=== PATIENT | male | born 1995 | race Hispanic/Latino ===

== ENCOUNTER 2020-06-13 00:17 | Emergency (ER) | payer OTHER ==
[2020-06-13] MEDS ORDERED: ONDANSETRON 4 MG/2 ML VIAL ONE (01:12)
[2020-06-13] MEDS ORDERED: MORPHINE 4 MG/ML SYR ONE (01:12)
[2020-06-13 01:14] LABS: Absolute Lymphocytes (CBC) 1.8 K/uL (0.7-4.9); Basophils % 0.4 % (0-1.3); Hematocrit 47.4 % (39.6-49.0); MPV 9.4 fL (7.6-11.3)
[2020-06-13 01:17] LABS: Protime INR 1.15
[2020-06-13 01:19] LABS: BUN Blood Urea Nitrogen 9 mg/dL (7-18); Bicarbonate 26 mmol/L (21-32); Glucose Level 90 mg/dL (74-106); Potassium 3.6 mmol/L (3.5-5.1); Sodium Level 140 mmol/L (136-145)
[2020-06-13] MEDS ORDERED: CLINDAMYCIN 600MG/D5W 600 MG/50 ML BAG IV ONE (01:48)
--- NOTE | 2020-06-13 02:46 | EDPHYS ---
Physician Documentation [facility] Name: Oleg Garcia Age: 24 yrs Sex: Male : 1995 Arrival Date: 06/13/2020 Time: 00:20 Bed 5 Private MD: ED Physician Ricardo Vo HPI: 06/13 00:54 This 24 yrs old Male presents to ER via Ambulatory with complaints of Jaw Injury. rn 00:54 The patient or guardian reports injury, pain, swelling. The complaints affect the right rn jaw. Context of injury: The problem was sustained at senior living, resulted from a fall. Onset: The symptoms/episode began/occurred today. Associated signs and symptoms: Loss of consciousness: This patient did not experience any loss of consciousness. Pertinent negatives: the patient has not experienced a loss of conciousness, double vision, headache, neck pain, seizure, shortness of breath, vomiting. Severity of symptoms: At their worst the symptoms were moderate, in the emergency department the symptoms are unchanged. The patient has not experienced similar symptoms in the past. The patient has not recently seen a physician. Reports fall running up stairs, hit right jaw on edge of stair, no LOC, doesn't take any blood thinners, remembers all events, denies other injury.. 00:56 Onset: The symptoms/episode began/occurred 2 hour(s) ago. rn Historical: - Allergies: 00:23 No Known Allergies; ea - Home Meds: 00:23 None [Active]; ea - PMHx: 00:23 None; ea - PSHx: 00:23 None; ea - Immunization history: Last tetanus immunization: - up to date. - Social history:: Smoking status: unknown Smoking status: unknown. - Family history:: not pertinent. - Hospitalizations: : No recent hospitalization is reported. ROS: 00:56 Constitutional: Negative for fever, chills, and weight loss, Eyes: Negative for injury, rn pain, redness, and discharge, ENT: + injury and pain to right jaw Neck: Negative for injury, pain, and swelling, Cardiovascular: Negative for chest pain, palpitations, and edema, Respiratory: Negative for shortness of breath, cough, wheezing, and pleuritic chest pain, Abdomen/GI: Negative for abdominal pain, nausea, vomiting, diarrhea, and constipation, Back: Negative for injury and pain, MS/Extremity: Negative for injury and deformity, Skin: Negative for injury, rash, and discoloration, Neuro: Negative for weakness, numbness, tingling, and seizure. Exam: 00:56 Constitutional: This is a well developed, well nourished patient who is awake, alert, rn and in no acute distress. Sitting upright and spitting small amounts of blood into emesis bag. Head/Face: Normocephalic, + mild swelling and tenderness along right jaw Eyes: Pupils equal round and reactive to light, extra-ocular motions intact. Lids and lashes normal. Conjunctiva and sclera are non-icteric and not injected. Cornea within normal limits. Periorbital areas with no swelling, redness, or edema. ENT: + small amount of bleeding noted along right lower teeth with break in alveolar ridge between teeth 28/29 and mild subluxation of tooth 29. Neck: NO midline tenderness Cardiovascular: Bradycardic, regular. No pulse deficits. Respiratory: No increased work of breathing, no retractions or nasal flaring. Abdomen/GI: Soft, non-tender MS/ Extremity: Pulses equal, no cyanosis. Neurovascular intact. Full, normal range of motion. Equal circumference. Neuro: Awake and alert, GCS 15, oriented to person, place, time, and situation. Cranial nerves II-XII grossly intact. Motor strength 5/5 in all extremities. Sensory grossly intact. Vital Signs: 00:21 BP 130 / 87; Pulse 53; Resp 16; Temp 98.4; Pulse Ox 99% ; ea 01:27 BP 131 / 80; Pulse 60; Resp 16; Pulse Ox 100% ; ea 02:44 BP 141 / 89; Pulse 60; Resp 16; Temp 98.0; Pulse Ox 98% ; ea 03:12 BP 148 / 78; Pulse 62; Resp 18; Temp 98.2; Pulse Ox 98% ; ea [facility] Coma Score: 00:21 Eye Response: spontaneous(4). Verbal Response: oriented(5). Motor Response: obeys rv commands(6). Total: 15. 00:54 Eye Response: spontaneous(4). Verbal Response: oriented(5). Motor Response: obeys rn commands(6). Total: 15. 01:27 Eye Response: spontaneous(4). Verbal Response: oriented(5). Motor Response: obeys ea commands(6). Total: 15. 01:53 Eye Response: spontaneous(4). Verbal Response: oriented(5). Motor Response: obeys rn commands(6). Total: 15. Trauma Score (Adult): 00:21 Eye Response: spontaneous(1); Verbal Response: oriented(1); Motor Response: obeys rv commands(2); Systolic BP: > 89 mm Hg(4); Respiratory Rate: 10 to 29 per min(4); [facility] Score: 15; Trauma Score: 12 MDM: 00:23 Patient medically screened. rn 01:53 Differential diagnosis: Contusion of Concussion mandible fracture. Data reviewed: vital rn signs, nurses notes, lab test result(s), radiologic studies, CT scan, and as a result, I will admit patient. Counseling: I had a detailed discussion with the patient and/or guardian regarding: the historical points, exam findings, and any diagnostic results supporting the discharge/admit diagnosis, radiology results, the need for further work-up and treatment in the hospital, the need to transfer to another facility, for higher level of care, [facility] not [facility] have the required specialist. Response to treatment: the patient's symptoms have mildly improved after treatment, and as a result, I will admit patient. ED course: Pt with fractures of right parasymphyseal mandible that extends through alveolar ridge, and displaced left body of mandible. Will have to transfer given to facial trauma coverage at this hospital, and patient is inmate. Attempting to transfer to [facility] for these reasons. . 02:47 ED course: Spoke with [facility] after initiating transfer, physician at [facility] covering facial digital media intern states no need for emergent transfer, states can f/u JONATHON in clinic. Managed care taking care of appointment. Abx given. Pain improved with morphine.. 06/13 00:39 Order name: CBC with Diff rn 06/13 00:39 Order name: Basic Metabolic Panel rn 06/13 00:39 Order name: Protime (+inr) rn 06/13 00:39 Order name: Ptt, Activated rn 06/13 00:41 Order name: CBC with Automated Diff EDMS 06/13 00:41 Order name: Basic Metabolic Panel EDMS 06/13 00:39 Order name: CT Head C Spine rn 06/13 00:39 Order name: CT Facial Bones W/O Con rn 06/13 00:41 Order name: Protime (+INR) EDMS 06/13 00:41 Order name: PTT, Activated Partial Thromb EDMS 06/13 00:39 Order name: IV Start; Complete Time: 01:08 rn Administered Medications: 01:06 Drug: morphine 4 mg Route: IVP; Site: right upper arm; ea 02:55 Follow up: Response: No adverse reaction ea 01:06 Drug: Zofran (Ondansetron) 4 mg Route: IVP; Site: right upper arm; ea 02:55 Follow up: Response: No adverse reaction ea 01:33 Drug: Clindamycin 600 mg Route: IVPB; Infused Over: 30 mins; Site: right upper arm; ea 02:05 Follow up: Response: No adverse reaction; IV Status: Completed infusion ea 03:04 Drug: morphine 4 mg Route: IVP; Site: right upper arm; ea 03:13 Follow up: Response: Medication administered at discharge. ea Disposition: 06/13/20 02:50 Discharged to Home. Impression: Fracture of alveolus of mandible, Fracture of condylar process of mandible, Fracture of ramus of mandible, Fracture of nasal bones. - Condition is Stable. - Discharge Instructions: Mandibular Fracture, Nasal Fracture. - Prescriptions for Augmentin 875- 125 mg Oral Tablet - take 1 tablet by ORAL route every 12 hours for 10 days; 20 tablet. Tylenol- Codeine #3 300-30 mg Oral Tablet - take 2 tablet by ORAL route every 4-6 hours As needed; 20 tablet. - Medication Reconciliation Form, Thank You Letter, Antibiotic Education, Prescription Opioid Use form. - Follow up: Private Physician; When: When scheduled by managed care; Reason: Recheck today's complaints, Continuance of care. - Problem is new. - Symptoms have improved. Signatures: Dispatcher [employer] EDMS Ricardo Vo MD MD rn Antunez, Elena, RN RN ea Vicente, Ronaldo, RN RN rv Corrections: (The following items were deleted from the chart) 01:54 00:56 Constitutional: This is a well developed, well nourished patient who is awake, rn alert, and in no acute distress. Sitting upright and spitting small amounts of blood into emesis bag. Head/Face: Normocephalic, + mild swelling and tenderness along right jaw Eyes: Pupils equal round and reactive to light, extra-ocular motions intact. Lids and lashes normal. Conjunctiva and sclera are non-icteric and not injected. Cornea within normal limits. Periorbital areas with no swelling, redness, or edema. ENT: + small amount of bleeding noted along right loewr teeth, difficult to appreciate if alveolar ridge fracture evident. Neck: NO midline tenderness Cardiovascular: Bradycardic, regular. No pulse deficits. Respiratory: No increased work of breathing, no retractions or nasal flaring. Abdomen/GI: Soft, non-tender MS/ Extremity: Pulses equal, no cyanosis. Neurovascular intact. Full, normal range of motion. Equal circumference. Neuro: Awake and alert, GCS 15, oriented to person, place, time, and situation. Cranial nerves II-XII grossly intact. Motor strength 5/5 in all extremities. Sensory grossly intact. rn 02:47 02:45 06/13/2020 02:45 Transfer ordered to [facility]. Diagnosis is Fracture of rn alveolus of mandible; Fracture of ramus of mandible; Fracture of condylar process of mandible; Fracture of nasal bones. Reason for transfer: Higher level of care. Accepting physician is . Condition is Stable. Problem is new. Symptoms have improved. rn 03:13 02:50 06/13/2020 02:50 Discharged to Home. Impression: Fracture of alveolus of ea mandible; Fracture of condylar process of mandible; Fracture of ramus of mandible; Fracture of nasal bones. Condition is Stable. Forms are Medication Reconciliation Form, Thank You Letter, Antibiotic Education, Prescription Opioid Use. Follow up: Private Physician; When: When scheduled by managed care; Reason: Recheck today's complaints, Continuance of care. Problem is new. Symptoms have improved. rn
--- NOTE | 2020-06-13 02:46 | ER ---
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 Pt complaining of right jaw pain. Coronavirus screen: At this time, the client does not indicate any symptoms associated with coronavirus-19. Ebola Screen: No symptoms or risks identified at this time. Initial Sepsis Screen: Does the patient meet any 2 criteria? No. Patient's initial sepsis screen is negative. Does the patient have a suspected source of infection? No. Patient's initial sepsis screen is negative. Risk Assessment: Do you want to hurt yourself or someone else? Patient reports no desire to harm self or others. Onset of symptoms was June 13, 2020. 00:21 Method Of Arrival: Ambulatory ea 00:21 Acuity: ROHAN 3 ea 00:31 Mechanism of Injury: Fall down steps an unknown distance. Trauma event details: Injury ea occurred in the [facility], Injury occurred: nursing home Injury occurred: June 12, 2020 Injury occurred at: 22:00. 00:32 Care prior to arrival: None. ea Triage Assessment: 00:23 General: Appears comfortable, Behavior is calm, cooperative. Pain: Complains of pain in rv lower jaw. Trauma Activation: Not Applicable Physician: ED Physician; Name: ; Notified At: ; Arrived At: Physician: General Surgeon; Name: ; Notified At: ; Arrived At: Physician: Radiology; Name: ; Notified At: ; Arrived At: Physician: Respiratory; Name: ; Notified At: ; Arrived At: Physician: Lab; Name: ; Notified At: ; Arrived At: Historical: - Allergies: 00:23 No Known Allergies; ea - Home Meds: 00:23 None [Active]; ea - PMHx: 00:23 None; ea - PSHx: 00:23 None; ea - Immunization history: Last tetanus immunization: - up to date. - Social history:: Smoking status: unknown Smoking status: unknown. - Family history:: not pertinent. - Hospitalizations: : No recent hospitalization is reported. Screenin:21 Abuse screen: Denies threats or abuse. Denies injuries from another. Tuberculosis rv screening: No symptoms or risk factors identified. 00:22 Nutritional screening: No deficits noted. Fall Risk None identified. rv Primary Survey: 00:21 NO uncontrolled hemorrhage observed. A: The patient is alert. Airway: patent. rv Breathing/Chest: Respiratory pattern: regular. Circulation: Skin color: pink. Disability Alert. Exposure/Environment: There is no evidence of uncontrolled external bleeding. No obvious injuries are noted at this time. A warming method has been applied: A warm blanket has been provided to the patient. 01:26 Reassessment Airway Airway Patent Breathing/Chest Respiratory pattern Regular ea Respiratory effort Spontaneous Unlabored Disability Alert. Secondary Survey: 00:21 HEENT: No deficits noted. Head No injury/deformity Face No injury/deformity Eyes: No rv injury or deformity noted. Ears: clear bilaterally. Nose: clear to bilateral nares. Throat: No injury or deformity noted. Gastrointestinal: No deficits noted. : No deficits noted. Musculoskeletal: No signs and/or symptoms reported regarding the musculoskeletal system. Assessment: 00:23 General: Appears uncomfortable, Behavior is appropriate for age. Pain: Complains of ea pain in right side of head. Neuro: Level of Consciousness is awake, alert, obeys commands, Oriented to person, place, time. Cardiovascular: Patient's skin is warm and dry. Respiratory: Airway is patent Respiratory effort is even, unlabored, Respiratory pattern is regular, symmetrical. EENT: pt spitting out bloody sputum. Derm: Skin is pink, warm \\T\\ dry. 01:18 Reassessment: Patient and/or family updated on plan of care and expected duration. Pain ea level reassessed. Patient is alert, oriented x 3, equal unlabored respirations, skin warm/dry/pink. Pt taken to CT. 02:44 Reassessment: Patient and/or family updated on plan of care and expected duration. Pain ea level reassessed. Patient is alert, oriented x 3, equal unlabored respirations, skin warm/dry/pink. Vital Signs: 00:21 BP 130 / 87; Pulse 53; Resp 16; Temp 98.4; Pulse Ox 99% ; ea 01:27 BP 131 / 80; Pulse 60; Resp 16; Pulse Ox 100% ; ea 02:44 BP 141 / 89; Pulse 60; Resp 16; Temp 98.0; Pulse Ox 98% ; ea 03:12 BP 148 / 78; Pulse 62; Resp 18; Temp 98.2; Pulse Ox 98% ; ea [facility] Coma Score: 00:21 Eye Response: spontaneous(4). Verbal Response: oriented(5). Motor Response: obeys rv commands(6). Total: 15. 00:54 Eye Response: spontaneous(4). Verbal Response: oriented(5). Motor Response: obeys rn commands(6). Total: 15. 01:27 Eye Response: spontaneous(4). Verbal Response: oriented(5). Motor Response: obeys ea commands(6). Total: 15. 01:53 Eye Response: spontaneous(4). Verbal Response: oriented(5). Motor Response: obeys rn commands(6). Total: 15. Trauma Score (Adult): 00:21 Eye Response: spontaneous(1); Verbal Response: oriented(1); Motor Response: obeys rv commands(2); Systolic BP: > 89 mm Hg(4); Respiratory Rate: 10 to 29 per min(4); [place] Score: 15; Trauma Score: 12 ED Course: 00:20 Patient arrived in ED. rv 00:21 Patient has correct armband on for positive identification. rv 00:21 Patient maintains SpO2 saturation greater than 95% on room air. rv 00:23 Triage completed. ea 00:23 Ricardo Vo MD is Attending Physician. rn 00:23 Arm band placed on right wrist. Patient placed in an exam room, on a stretcher, on ea pulse oximetry. 00:30 Luz Brewer, ZOIE is Primary Nurse. ea 00:31 Thermoregulation: warm blanket given to patient. ea 00:45 Missed attempt(s): 20 gauge in right forearm. Bleeding controlled, band aid applied, ea catheter tip intact. 01:06 Inserted saline lock: 18 gauge in right upper arm, using aseptic technique. ,using ea aseptic technique. per Lele LINO. 01:37 CT Head C Spine In Process Unspecified. EDMS 01:37 CT Facial Bones W/O Con In Process Unspecified. EDMS 02:00 initiated a transfer with Lana from [facility]. She stated " we will mw2 check bed placement and I will call you back.". 03:05 No provider procedures requiring assistance completed. IV discontinued, intact, ea bleeding controlled, No redness/swelling at site. Pressure dressing applied. Administered Medications: 01:06 Drug: morphine 4 mg Route: IVP; Site: right upper arm; ea 02:55 Follow up: Response: No adverse reaction ea 01:06 Drug: Zofran (Ondansetron) 4 mg Route: IVP; Site: right upper arm; ea 02:55 Follow up: Response: No adverse reaction ea 01:33 Drug: Clindamycin 600 mg Route: IVPB; Infused Over: 30 mins; Site: right upper arm; ea 02:05 Follow up: Response: No adverse reaction; IV Status: Completed infusion ea 03:04 Drug: morphine 4 mg Route: IVP; Site: right upper arm; ea 03:13 Follow up: Response: Medication administered at discharge. ea Intake: 03:12 PO: 0ml; Total: 0ml. ea Outcome: 02:45 ER care complete, transfer ordered by . rn 02:50 Discharge ordered by MD. rn 03:05 Discharged to [facility] ea 03:05 Condition: stable 03:05 Patient's length of stay was not longer than 2 hours. 03:05 Discharge instructions given to patient, Instructed on discharge instructions, follow ea up and referral plans. medication usage, Demonstrated understanding of instructions, follow-up care, medications, Prescriptions given X 2. 03:13 Patient left the ED. ea Signatures: Dispatcher [employer] [facility] Ricardo Vo MD MD rn Antunez, Elena RN RN J Carlos Costa mw2 Gabriele Osorio RN RN rv
[2020-06-13 03:36] VITALS: O2SAT 98
[2020-06-13 03:37] VITALS: BP 148/78; TEMP 98.2
--- NOTE | 2020-06-13 13:53 | RAD REPORT ---
EXAM DESCRIPTION: CT - Facial Bones W/ Mpr - 06/13/2020 6:38 am CLINICAL HISTORY: FACIAL PAIN COMPARISON: None. TECHNIQUE: CT MAXILLOFACIAL WITHOUT IV CONTRAST on 06/13/2020 12:39 AM CDT This exam was performed according to our departmental dose-optimization program, which includes autom ated exposure control, adjustment of the mA and/or kV according to patient size and/or use of iterati ve reconstruction technique. FINDINGS: There is a displaced fracture of the left mandibular condyle. There is a mildly displaced fracture of the anterolateral right side of the mandible. There are bilateral mildly comminuted fract ures of the nasal bones. There is an old appearing fracture of the medial right orbital wall. The par anasal sinuses are clear. Orbits and globes are unremarkable. Mastoid air cells are clear. Temporoman dibular joints are intact. There are no significant soft tissue abnormalities. IMPRESSION: Multiple bilateral fractures as described. Electronically signed by: Ismael Rosen MD 06/13/2020 2:01 AM CDT Due to temporary technical issues with the PACS/Fluency reporting system, reports are being signed by the in house radiologists without review as a courtesy to insure prompt reporting. The interpreting radiologist is fully responsible for the content of the report.
--- NOTE | 2020-06-13 14:20 | RAD REPORT ---
EXAM DESCRIPTION: CT - CTHCSPWOC - 06/13/2020 6:38 am CLINICAL HISTORY: 24 years, Male, fall, head injury, facial trauma COMPARISON: None. FINDINGS: Multiple transaxial tomograms of the brain were obtained from the base of the skull to the vertex without contrast. 2-D multiplanar reformats and the coronal and sagittal plane were performed and reviewed. An individualized dose optimization technique, Automated Exposure Control, was utilized for the perfo rmed procedure. Head: The brain parenchyma as well as the parsons and white matter differentiation demonstrate to be unr emarkable. There is no midline shift and/or mass effect. There is no evidence for acute hemorrhage an d/or infarction. Lateral ventricles and cisterns displace normal appearance. No intra or extra ax ial fluid collections were seen. The calvarium is intact with no evidence for fracture. The visualize d portions of the paranasal sinuses and orbits demonstrate to be clear. Cervical spine: The alignment, vertebral body heights, and disc spaces are normal. There is no evid ence of fracture or subluxation. There are no significant degenerative changes. The spinal canal demo nstrate no evidence for significant stenosis. Neural foramina demonstrate to be unremarkable. The unc overtebral joints demonstrate to be normal. There is no prevertebral soft tissue swelling. Sagittal coronal reformatted images demonstrate no subluxation or bony abnormalities. Incidentally is noted presence of a right anterior mandibular fracture and left mandible condyle neck . IMPRESSION: NO ACUTE INTRACRANIAL HEMORRHAGE. UNREMARKABLE CT SCAN OF THE HEAD WITHOUT CONTRAST. CT CERVICAL SPINE NEGATIVE FOR FRACTURE OR SUBLUXATION. INCIDENTALLY NOTED IS A RIGHT ANTERIOR MANDIBULAR FRACTURE AND LEFT NECK MANDIBULAR CONDYLE. Electronically signed by: Dom Flores MD 06/13/2020 2:02 AM CDT Due to temporary technical issues with the PACS/Fluency reporting system, reports are being signed by the in house radiologists without review as a courtesy to insure prompt reporting. The interpreting radiologist is fully responsible for the content of the report.
== END 2020-06-13 03:13 | disposition home or self-care (01) ==
LOC: ER 00:17
DX: S02.670A Fracture of alveolus of mandible, unspecified side, initial encounter for closed fracture (principal); S02.2XXA Fracture of nasal bones, initial encounter for closed fracture; S02.612A Fracture of condylar process of left mandible, initial encounter for closed fracture; S02.640A Fracture of ramus of mandible, unspecified side, initial encounter for closed fracture; W10.9XXA Fall (on) (from) unspecified stairs and steps, initial encounter; Y92.149 Unspecified place in prison as the place of occurrence of the external cause
CPT/HCPCS: 85025; 80048; 36415; 85610; 85730; 70450; 72125; 70486; 76377; J2405; 96365; 96375; 99284

== ENCOUNTER 2023-06-06 09:53 | Emergency (ER) | payer OTHER ==
[2023-06-06 10:26] LABS: Absolute Eosinophils 0.1 K/uL (0-0.5); Absolute Lymphocytes (CBC) 1.2 K/uL (0.7-4.9); Absolute Monocytes 0.5 K/uL (0.1-1.3); Absolute Neutrophil 4.7 K/uL (1.8-8.0); Basophils % 0.7 % (0-1.3); Eosinophils % 1.3 % (0-4.4); Hematocrit 40.4 % (39.6-49.0); Hemoglobin 13.9 g/dL (13.6-17.9); Lymphocytes % 18.1 % (15.3-44.8); MCH 29.7 pg (27.0-35.0); MCHC 34.5 g/dL (32.0-36.0); MCV 86.3 fL (80-100); MPV 8.3 fL (7.6-11.3); Monocytes % 7.4 % (3.3-12.3); Neutrophils % 72.5 % (41.7-73.7); Nucleated Red Blood Cells % 0.1 % (0-0); Platelets 224 thou/uL (152-406); RBC Red Blood Cell Count 4.68 M/uL (4.33-5.43); Red Cell Distribution Width 13.9 % (12.1-15.2)
[2023-06-06 10:46] LABS: ALT/SGPT 104 U/L (16-61); AST/SGOT 211 U/L (15-37); Albumin 4.2 g/dL (3.4-5.0); Albumin/Globulin Ratio 1.4 (1.1-1.8); Alkaline Phosphatase 75 U/L (45-117); Anion Gap 7.2 mEq/L (5.0-15.0); BUN Blood Urea Nitrogen 14 mg/dL (7-18); Bicarbonate 27 mEq/L (21-32); Bilirubin Direct 0.2 mg/dL (0-0.2); Bilirubin Indirect, Calculated 0.4 mg/dL (0.2-0.8); Bilirubin Total 0.6 mg/dL (0.2-1.0); Glomerular Filtration Rate 128 ml/min (=/>90); Glucose Level 117 mg/dL (74-106); Potassium 4.2 mEq/L (3.5-5.1); Protein, Total 7.2 g/dL (6.4-8.2); Sodium Level 140 mEq/L (136-145)
--- NOTE | 2023-06-06 11:03 | RAD REPORT ---
EXAM DESCRIPTION: CT - Neck Angio - 06/06/2023 10:23 am CLINICAL HISTORY: Attempted suicide by hanging COMPARISON: C Spine Wo Con dated 06/06/2023; Head C Spine Mpr Wo Con dated 06/13/2020 TECHNIQUE: Axial CT angiography images of the neck was performed with multiplanar and maximum intens ity projection reconstructions. Images performed following intravenous administration of 100mL Isovue 370. All CT scans are performed using dose optimization technique as appropriate and may include automated exposure control or mA/KV adjustment according to patient size. Quantification of carotid stenosis, if any, is performed according to NASCET criteria. FINDINGS: A left aortic arch is identified with normal three vessel configuration of the great vesse ls. No significant flow abnormality is seen of the common carotid bilaterally. No significant stenosis is identified involving the cervical segments of both internal carotid arteri es. Tortuosity of the distal right ICA. Normal flow is seen within both vertebral arteries. No evidence of dissection, aneurysm, or other vascular abnormality. IMPRESSION: No evidence of dissection or other vascular abnormality. No significant flow abnormality of the neck vessels is identified. CAROTID STENOSIS REFERENCE USING NASCET CRITERIA: % ICA stenosis = (1 - narrowest ICA diameter/diameter of distal cervical ICA) x 100. Mild - <50% stenosis. Moderate - 50-69% stenosis. Severe - 70-94% stenosis. Near occlusion - 95-99% stenosis. Occluded - 100% stenosis.
--- NOTE | 2023-06-06 11:26 | RAD REPORT ---
EXAM DESCRIPTION: CT - C Spine Wo Con - 06/06/2023 10:25 am CLINICAL HISTORY: Attempted suicide by hanging COMPARISON: None. TECHNIQUE: Axial thin cut noncontrast CT images of the cervical spine were obtained with sagittal an d coronal reconstruction images generated and reviewed. All CT scans are performed using dose optimization technique as appropriate and may include automated exposure control or mA/KV adjustment according to patient size. FINDINGS: Cervical body height and alignment are normal. Atlanto odontoid relationship is normal. No disk space narrowing. No fracture or acute bony abnormality. No paraspinal mass or hematoma. Dental and periodontal disease with a periapical abscess along the root of the right mandibular later al incisor. Partially included small osteoma along the maxillary alveolus. IMPRESSION: No acute traumatic cervical spine fracture or subluxation.
--- NOTE | 2023-06-06 11:43 | ER ---
Nurse's Notes [facility] Name: Oleg Garcia Age: 27 yrs Sex: Male : 1995 Arrival Date: 06/06/2023 Time: 09:53 Bed 5 Private MD: Diagnosis: Attempted by suicide, neck abrasion Presentation: 06/05 09:57 Chief complaint: EMS states: Pt tried hanging himself with a sheet, incident was rs5 observed by [facility] staff who cut him down. Coronavirus screen: At this time, the client does not indicate any symptoms associated with coronavirus-19. Ebola Screen: No symptoms or risks identified at this time. Initial Sepsis Screen: Does the patient meet any 2 criteria? No. Patient's initial sepsis screen is negative. Does the patient have a suspected source of infection? No. Patient's initial sepsis screen is negative. Risk Assessment: Do you want to hurt yourself or someone else? Patient reports desire/thoughts of hurting themselves or someone else. Provider notified. Onset of symptoms was June 06, 2023. Care prior to arrival: IV initiated. 20 GA, in the right antecubital area. 09:57 Acuity: ROHAN 3 rs5 09:57 Method Of Arrival: EMS: [facility] iw 13:35 Care prior to arrival: Medication(s) given: fentanyl 50 mcg IVP X 2 iw Historical: - Allergies: 10:00 No Known Allergies; rs5 - PMHx: 10:00 None; rs5 - PSHx: 10:00 Jaw and nose surgery; rs5 - Immunization history:: Adult Immunizations up to date. - Infectious Disease History:: Denies. - Social history:: Smoking status: Patient denies any tobacco usage or history of. Screenin:58 [place] ED Fall Risk Assessment (Adult) History of falling in the last 3 months, rs5 including since admission No falls in past 3 months (0 pts) Confusion or Disorientation No (0 pts) Intoxicated or Sedated No (0 pts) Impaired Gait No (0 pts) Mobility Assist Device Used No (0 pt) Altered Elimination No (0 pt) Score/Fall Risk Level 0 - 2 = Low Risk Oriented to surroundings, Maintained a safe environment. Abuse screen: Denies threats or abuse. Nutritional screening: No deficits noted. Tuberculosis screening: No symptoms or risk factors identified. Assessment: 09:56 General: Appears in no apparent distress. comfortable, Behavior is calm, cooperative. rs5 09:56 Pain: Denies pain. Neuro: Level of Consciousness is awake, alert, obeys commands, rs5 Oriented to person, place, time, situation. Cardiovascular: Patient's skin is warm and dry. Rhythm is regular. Respiratory: Airway is patent Respiratory effort is even, unlabored, Respiratory pattern is regular, symmetrical, Breath sounds are clear bilaterally. GI: Abdomen is round non-distended, Abd is soft and non tender X 4 quads. : No signs and/or symptoms were reported regarding the genitourinary system. EENT: No signs and/or symptoms were reported regarding the EENT system. Derm: Skin is intact, Skin is dry, Skin is normal, Skin temperature is warm. Musculoskeletal: Range of motion: intact in all extremities. 11:09 Reassessment: Patient and/or family updated on plan of care and expected duration. Pain rs5 level reassessed. Patient is alert, oriented x 3, equal unlabored respirations, skin warm/dry/pink. 12:25 Reassessment: No changes from previously documented assessment. rs5 13:00 Reassessment: Patient and/or family updated on plan of care and expected duration. Pain rs5 level reassessed. Patient is alert, oriented x 3, equal unlabored respirations, skin warm/dry/pink. Vital Signs: 09:57 BP 125 / 81; Pulse 70; Resp 18; Temp 97.8(O); Pulse Ox 99% ; rs5 11:31 BP 120 / 78; Pulse 72; Resp 18; Pulse Ox 99% on R/A; rs5 13:40 BP 118 / 78; Pulse 71; Resp 16; Temp 98.1; Pulse Ox 100% on R/A; iw ED Course: 09:55 Patient arrived in ED. eb 09:55 Susana Jerry MD is Attending Physician. sp3 09:57 Raphael Mosley, ZOIE is Primary Nurse. rs5 09:58 Patient has correct armband on for positive identification. Placed in gown. Bed in low rs5 position. Call light in reach. Side rails up X2. 10:00 Triage completed. rs5 10:19 Initial lab(s) drawn, by me, sent to lab. Maintain EMS IV. Dressing intact. Good blood jg11 return noted. Site clean \T\ dry. 10:24 CT Neck Angio In Process Unspecified. EDMS 10:24 CT C Spine In Process Unspecified. EDMS 10:39 Arm band placed on. iw 11:32 No provider procedures requiring assistance completed. rs5 11:41 initiated a transfer with Dylan Borrego Rn from [facility]/ he says he will call the psych doctor at [facility] and call us right back. 13:40 IV discontinued, intact, bleeding controlled, No redness/swelling at site. Pressure iw dressing applied. Administered Medications: No medications were administered Medication: 11:32 VIS not applicable for this client. rs5 Outcome: 11:42 ER care complete, transfer ordered by . sp3 13:16 Discharge ordered by . sp3 13:48 Discharged to Law Enforcement iw 13:48 Condition: stable 13:48 Instructed on 13:49 Patient left the ED. iw Signatures: Dispatcher [employer] Vicki Gallegos, RN RN Mariajose Braxton Setul, MD MD sp3 Raphael Mosley RN RN rs5 Fredy Walker jg11 Corrections: (The following items were deleted from the chart) 10:00 10:00 PSHx: None; rs5 rs5 10:05 09:57 Method Of Arrival: EMS: [facility] rs5 iw 10:40 09:57 Risk Assessment: Do you want to hurt yourself or someone else? Patient reports no iw desire to harm self or others. rs5
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
[2023-06-06 14:26] VITALS: BP 120/78; TEMP 97.8; O2SAT 99
== END 2023-06-06 13:49 | disposition home or self-care (01) ==
LOC: ER 09:53
DX: S10.81XA Abrasion of other specified part of neck, initial encounter (principal); X83.8XXA Intentional self-harm by other specified means, initial encounter
CPT/HCPCS: 85025; 80048; 36415; 80076; 72125; 70498; 99284; 80143; 80179; 82077; Q9967

== ENCOUNTER 2024-11-04 09:58 | Emergency (ER) | payer OTHER ==
[2024-11-04 10:35] LABS: Absolute Lymphocytes (CBC) 1.6 K/uL (0.7-4.9); Hematocrit 42.1 % (39.6-49.0); Hemoglobin 14.3 g/dL (13.6-17.9); MCH 29.3 pg (27.0-35.0); MCHC 34.1 g/dL (32.0-36.0); MCV 86.1 fL (80-100); MPV 8.6 fL (7.6-11.3); Nucleated RBC Absolute Count 0.0 (0-0); Nucleated Red Blood Cells % 0.2 % (0-0); RBC Red Blood Cell Count 4.89 M/uL (4.33-5.43); White Blood Count 5.90 thou/uL (4.3-10.9)
[2024-11-04] MEDS ORDERED: NA CHLORIDE 0.9% 1,000 ML ONE ×2 (10:37→12:23)
[2024-11-04 10:47] LABS: PT Prothrombin Time 13.0 SECONDS (10-13.0); PTT, Activated Partial Thromb 31.1 SECONDS (27.2-37.4); Protime INR 1.16
[2024-11-04 11:12] LABS: METHAMPHETAM NEGATIVE (NEGATIVE); THC Cannibis NEGATIVE (NEGATIVE)
[2024-11-04 11:17] LABS: Anion Gap 8.6 mEq/L (5.0-15.0); Potassium 3.6 mEq/L (3.5-5.1)
[2024-11-04 11:18] LABS: ALT/SGPT 15 U/L (16-61); AST/SGOT 8 U/L (15-37); Albumin 4.2 g/dL (3.4-5.0); Albumin/Globulin Ratio 1.6 (1.1-1.8); Alkaline Phosphatase 55 U/L (45-117); BUN Blood Urea Nitrogen 16 mg/dL (7-18); Bilirubin Indirect, Calculated 1.2 mg/dL (0.2-0.8); Globulin 2.7 g/dL (2.3-3.5); Glucose Level 111 mg/dL (74-106)
[2024-11-04 11:21] LABS: Troponin High Sensitivity 3.0 (<58.9)
--- NOTE | 2024-11-04 13:55 | EDPHYS ---
Physician Documentation [facility] Name: Oleg Garcia Age: 28 yrs Sex: Male : 1995 Arrival Date: 11/04/2024 Time: 09:58 Bed 4 Private MD: ED Physician Liset Strauss HPI: 11/04 14:05 This 28 yrs old Male presents to ER via EMS with complaints of Altered Mental gb1 Status. 14:05 28-year-old male was brought in by security senior living officers due to being found gb1 unresponsive in his cell. The present has been finding inmates with similar symptoms over the last couple weeks. Patient denies ingesting any substance and denies alcohol intoxication.. Historical: - Allergies: 10:03 No Known Allergies; ll1 - Home Meds: 10:03 None [Active]; ll1 - PMHx: 10:03 None; ll1 - PSHx: 10:03 Jaw and nose surgery; ll1 - Immunization history:: Adult Immunizations up to date. - Infectious Disease History:: Denies. - Social history:: Smoking status: Patient reports the use of cigarette tobacco products, denies chronic smoking, but will smoke occasionally. Exam: 14:05 Constitutional: This is a well developed, well nourished patient who is awake, alert, gb1 and in no acute distress. Head/Face: Normocephalic, atraumatic. Eyes: Pupils equal round and reactive to light, extra-ocular motions intact. Lids and lashes normal. Conjunctiva and sclera are non-icteric and not injected. Cornea within normal limits. Periorbital areas with no swelling, redness, or edema. ENT: Nares patent. No nasal discharge, no septal abnormalities noted. Tympanic membranes are normal and external auditory canals are clear. Oropharynx with no redness, swelling, or masses, exudates, or evidence of obstruction, uvula midline. Mucous membranes moist. Neck: Trachea midline, no thyromegaly or masses palpated, and no cervical lymphadenopathy. Supple, full range of motion without nuchal rigidity, or vertebral point tenderness. No Meningismus. Chest/axilla: Normal chest wall appearance and motion. Nontender with no deformity. No lesions are appreciated. Cardiovascular: Regular rate and rhythm with a normal S1 and S2. No gallops, murmurs, or rubs. Normal PMI, no JVD. No pulse deficits. Respiratory: Lungs have equal breath sounds bilaterally, clear to auscultation and percussion. No rales, rhonchi or wheezes noted. No increased work of breathing, no retractions or nasal flaring. Abdomen/GI: Soft, non-tender, with normal bowel sounds. No distension or tympany. No guarding or rebound. No evidence of tenderness throughout. Skin: Warm, dry with normal turgor. Pale MS/ Extremity: Pulses equal, no cyanosis. Neurovascular intact. Full, normal range of motion. Vital Signs: 10:01 BP 113 / 56; Pulse 48; Resp 17; Temp 97.8; Pulse Ox 100% ; Pain 0/10; mb9 10:41 BP 92 / 52; Pulse 48; Resp 13; Pulse Ox 100% ; af3 11:02 BP 112 / 74; Pulse 50; Resp 12; Pulse Ox 100% on R/A; af3 11:40 BP 110 / 77; Pulse 85; Resp 20; Pulse Ox 100% on R/A; af3 13:09 BP 98 / 63; Pulse 63; Resp 18; Pulse Ox 100% on R/A; af3 13:43 BP 103 / 63; Pulse 66; Resp 18; Pulse Ox 100% on R/A; af3 10:01 Pain Scale: Adult mb9 MDM: 10:05 Medical Screening Exam initiated gb1 14:05 ED course: 28-year-old male here with altered mental status with a concern for gb1 questionable toxic ingestion. Drug screen is negative blood pressure has been labile but low increased after fluid hydration and responsive and after eating a full meal patient appears more awake and has his color back. I will discharge him home to back to the senior living with guard [employer].. 11/04 10:06 Order name: Acetaminophen; Complete Time: :11/04 10:06 Order name: Basic Metabolic Panel; Complete Time: 11/04 10:06 Order name: CBC with Diff; Complete Time: :11/04 10:06 Order name: ETOH Level; Complete Time: :11/04 10:06 Order name: PT-INR; Complete Time: :11/04 10:06 Order name: Ptt, Activated; Complete Time: :/18 10:06 Order name: Salicylate; Complete Time: 11:38 11/04 10:06 Order name: Urine Drug Screen; Complete Time: : 11/04 10:22 Order name: Troponin High Sensitivity; Complete Time: :38 11/04 10:23 Order name: CK; Complete Time: 11: [facility] 11/04 10:32 Order name: Liver (Hepatic) Function; Complete Time: 11:38 [facility] 11/04 10:06 Order name: EKG; Complete Time: 10:[address] [facility] 11/04 10:06 Order name: EKG - Nurse/Tech; Complete Time: 10:[address] [facility] 11/04 10:06 Order name: IV Saline Lock; Complete Time: 10:15 11/04 10:06 Order name: Labs collected and sent; Complete Time: 10:15 11/04 10:06 Order name: Suicide Screening ([place]); Complete Time: 12:02 gb Administered Medications: 10:40 Drug: NS 0.9% IV 1000 ml IV at 1 bolus Per protocol; to be given as a bolus over 60 af3 minutes Route: IV; Rate: 1 bolus; Site: right antecubital; 12:02 Follow up: Response: No adverse reaction; IV Status: Completed infusion; IV Intake: af3 1000ml 12:28 Drug: NS 0.9% IV 1000 ml IV at 1 bolus Per protocol; to be given as a bolus over 60 ll1 minutes Route: IV; Rate: 1 bolus; Site: left antecubital; 14:09 Follow up: Response: No adverse reaction; IV Status: Completed infusion; IV Intake: af3 1000ml Disposition Summary: 11/04/24 13:54 Discharge Ordered Notes: Location: Home gb1 Problem: an acute exacerbation gb1 Symptoms: have improved gb1 Condition: Stable gb1 Diagnosis - Altered mental status, unspecified gb1 Followup: gb1 - With: Private Physician - When: Tomorrow - Reason: If symptoms return Discharge Instructions: - Discharge Summary Sheet gb1 - Confusion gb1 Forms: - Medication Reconciliation Form gb1 - Antibiotic Education gb1 - Prescription Opioid Use gb1 - Patient Portal Instructions gb1 - Leadership Thank You Letter gb1 Signatures: Dispatcher [employer] Kamala Love RN RN ll1 Liset Strauss MD MD gb1 Sayda Mckeon RN RN af3 Corrections: (The following items were deleted from the chart) 10:31 10:06 HEPATIC FUNCTION+C.LAB.ADEZ ordered. EDMS EDMS
--- NOTE | 2024-11-04 13:55 | ER ---
Nurse's Notes [facility] Name: Oleg Garcia Age: 28 yrs Sex: Male : 1995 Arrival Date: 11/04/2024 Time: 09:58 Bed 4 Private MD: Diagnosis: Altered mental status, unspecified Presentation: 11/04 10:01 Chief complaint: EMS states: Brought to [facility] very lethargic and altered, possible ll1 post ingestion. HR 180's after 250 ml bolus, so they sent him in. Sugar 84, HR 70-80's, BP WNL. 20 G R upper arm, another 250 ml bolus given en route. Coronavirus screen: Client denies travel out of the [place] in the last 14 days. At this time, the client does not indicate any symptoms associated with coronavirus-19. Ebola Screen: Patient denies travel to an Ebola-affected area in the 21 days before illness onset. Initial Sepsis Screen: Does the patient meet any 2 criteria? No. Patient's initial sepsis screen is negative. Does the patient have a suspected source of infection? No. Patient's initial sepsis screen is negative. Risk Assessment: Do you want to hurt yourself or someone else? Patient reports no desire to harm self or others. Onset of symptoms was November 04, 2024. 10:01 Method Of Arrival: EMS ll1 10:01 Acuity: ROHAN 2 ll1 Triage Assessment: 10:03 General: Appears uncomfortable, Behavior is calm, cooperative, appropriate for age, ll1 Reports fatigue for. Pain: Denies pain. Neuro: Reports weakness possible ingestion. Historical: - Allergies: 10:03 No Known Allergies; ll1 - Home Meds: 10:03 None [Active]; ll1 - PMHx: 10:03 None; ll1 - PSHx: 10:03 Jaw and nose surgery; ll1 - Immunization history:: Adult Immunizations up to date. - Infectious Disease History:: Denies. - Social history:: Smoking status: Patient reports the use of cigarette tobacco products, denies chronic smoking, but will smoke occasionally. Screenin:15 [facility] ED Fall Risk Assessment (Adult) History of falling in the last 3 months, af3 including since admission No falls in past 3 months (0 pts) Confusion or Disorientation No (0 pts) Intoxicated or Sedated No (0 pts) Impaired Gait No (0 pts) Mobility Assist Device Used No (0 pt) Altered Elimination No (0 pt) Score/Fall Risk Level 0 - 2 = Low Risk Oriented to surroundings, Maintained a safe environment, Educated pt \T\ family on fall prevention, incl call for assistance when getting out of bed. Abuse screen: Denies threats or abuse. Denies injuries from another. Nutritional screening: No deficits noted. Tuberculosis screening: No symptoms or risk factors identified. Assessment: 10:15 General: Appears in no apparent distress. comfortable, well groomed, well developed, af3 Behavior is calm, cooperative, appropriate for age. Pain: Denies pain. Neuro: Level of Consciousness is awake, alert, obeys commands, lethargic, Oriented to person, place, time, situation, Appropriate for age. Cardiovascular: Patient's skin is warm and dry. Rhythm is sinus bradycardia. Respiratory: Airway is patent Respiratory effort is even, unlabored, Respiratory pattern is regular, symmetrical. 10:25 Reassessment: Dr. Strauss notified of pts HR of 48. mb9 11:40 Reassessment: Patient appears in no apparent distress at this time. Patient and/or af3 family updated on plan of care and expected duration. Pain level reassessed. Patient is alert, oriented x 3, equal unlabored respirations, skin warm/dry/pink. 12:28 Reassessment: No changes from previously documented assessment. Patient and/or family ll1 updated on plan of care and expected duration. Pain level reassessed. 13:09 Reassessment: Patient appears in no apparent distress at this time. No changes from af3 previously documented assessment. Patient and/or family updated on plan of care and expected duration. Pain level reassessed. Patient is alert, oriented x 3, equal unlabored respirations, skin warm/dry/pink. 13:43 Reassessment: Patient appears in no apparent distress at this time. No changes from af3 previously documented assessment. Patient and/or family updated on plan of care and expected duration. Pain level reassessed. Patient is alert, oriented x 3, equal unlabored respirations, skin warm/dry/pink. Given meal tray. 14:11 General: discharge pending, ride back to [employer] . af3 Vital Signs: 10:01 BP 113 / 56; Pulse 48; Resp 17; Temp 97.8; Pulse Ox 100% ; Pain 0/10; mb9 10:41 BP 92 / 52; Pulse 48; Resp 13; Pulse Ox 100% ; af3 11:02 BP 112 / 74; Pulse 50; Resp 12; Pulse Ox 100% on R/A; af3 11:40 BP 110 / 77; Pulse 85; Resp 20; Pulse Ox 100% on R/A; af3 13:09 BP 98 / 63; Pulse 63; Resp 18; Pulse Ox 100% on R/A; af3 13:43 BP 103 / 63; Pulse 66; Resp 18; Pulse Ox 100% on R/A; af3 10:01 Pain Scale: Adult mb9 ED Course: 10:00 Patient arrived in ED. ll1 10:03 Triage completed. ll1 10:03 Arm band placed on. ll1 10:03 Maintain EMS IV. Dressing intact. Good blood return noted. Site clean \T\ dry. Gauge \T\ ll 1 site: 20 G R upper arm. 10:05 Liset Strauss MD is Attending Physician. gb1 10:05 Initial lab(s) drawn, by me, sent to lab. EKG done, by ED staff, reviewed by Liset Strauss MD. 10:15 Patient has correct armband on for positive identification. Bed in low position. Call af3 light in reach. Provided Education on: medications . 10:15 No provider procedures requiring assistance completed. af3 10:40 Sayda Mckeon, RN is Primary Nurse. af3 12:29 Warm blanket given. ll1 14:10 IV discontinued, intact, bleeding controlled, No redness/swelling at site. Pressure af3 dressing applied. Administered Medications: 10:40 Drug: NS 0.9% IV 1000 ml IV at 1 bolus Per protocol; to be given as a bolus over 60 af3 minutes Route: IV; Rate: 1 bolus; Site: right antecubital; 12:02 Follow up: Response: No adverse reaction; IV Status: Completed infusion; IV Intake: af3 1000ml 12:28 Drug: NS 0.9% IV 1000 ml IV at 1 bolus Per protocol; to be given as a bolus over 60 ll1 minutes Route: IV; Rate: 1 bolus; Site: left antecubital; 14:09 Follow up: Response: No adverse reaction; IV Status: Completed infusion; IV Intake: af3 1000ml Medication: 10:43 VIS not applicable for this client. af3 Intake: 12:02 IV: 1000ml; Total: 1000ml. af3 14:09 IV: 1000ml; Total: 2000ml. af3 Outcome: 13:54 Discharge ordered by . michell 14:10 Discharged to [employer] [facility] af3 14:10 Condition: stable 14:10 Discharge instructions given to patient, Instructed on discharge instructions, Demonstrated understanding of instructions, 14:33 Patient left the ED. af3 Signatures: Kamala Reaves RN RN ll1 Flakita Sifuentes RN RN mb9 Liset Strauss MD MD gb1 Sayda Mckeon RN RN af3 Corrections: (The following items were deleted from the chart) 10:16 10:01 Resp 17bpm; Pain 0/10, Adult; jocelin mb9
[2024-11-04 14:38] VITALS: TEMP 97.8; O2SAT 100
[2024-11-04 14:46] VITALS: BP 103/63
== END 2024-11-04 14:33 | disposition home or self-care (01) ==
LOC: ER 09:58
DX: R41.82 Altered mental status, unspecified (principal); F17.210 Nicotine dependence, cigarettes, uncomplicated
CPT/HCPCS: 36415; 80048; 80076; 80143; 80179; 80307; 82077; 82550; 84484; 85025; 85610; 85730; 93005; 96360; 96361; 99284; J7030